=== PATIENT | female | born 1985 | race Caucasian/White ===

== ENCOUNTER 2017-03-08 21:59 | Emergency (ER) | payer OTHER ==
[~2017-03-08] VITALS: Ht 162.6 cm; Wt 98.3 kg
[~2017-03-08 21:59] MED LIST: ABILIFY2 MG PO; AFRIN,GENASAL D15 ML BOTH NARES; AUGMENTIN875 MG PO; CELEXA20 MG PO; CHANTIX1 MG PO; CILOXAN 0.1 APPLICAT RIGHT EYE; CLEOCIN300 MG PO; DESYREL100 MG PO; EFFEXOR XR150 MG PO; EFFEXOR50 MG PO; EFFEXOR75 MG PO; ENDOCET 5-3251 EACH; ERYTHROMYCIN O3.5 GM BOTH EYES; FLAGYL500 MG PO; FLONASE16 G1 BOTH NARES; HOMATROPINE; HYDROCODON-ACE1 EAC7 PO; IMITREX25 MG PO; INDOCIN25 MG PO; KEFLEX500 MG PO; KLONOPIN0.5 M1 PO; LORTAB 5-325 M1 EACH PO; MACROBID100 MG PO; MECLIZINE HCL25 MG PO; MEDROL DOSEPAK4 MG PO; MOTRIN800 MG PO; MUCUS RELIEF600 M1 PO; NAPROSYN500 MG PO; NICOTINE PATCH1 EAC2 TD; NOHOMEMEDS; NORCO 5/3251 TABLET PO; NORCO 7.5/321 TABLET PO; NORTRIPTYLINE H25 MG PO; ONDANSETRON ODT4 MG PO; PERCOCET 5/31 TABLET PO; PRED FORTE100 DROP/5 RIGHT EYE; PREDNISONE20 MG PO; PROMETHAZINE HC25 M1; TOPAMAX25 MG PO; TOPAMAX50 MG PO; TORADOL10 MG PO; TRAMADOL HCL50 MG PO; TRAZODONE HCL300 MG PO; ULTRAM50 MG PO; VENLAFAXINE HC150 M1 PO; VITAMIN D5000 UNIT PO; XANAX0.5 MG PO; ZOFRAN4 MG PO
[2017-03-09] MEDS ORDERED: VALIUM5 MG PO
[2017-03-09] MEDS ORDERED: NORCO 7.5/321 TABLET PO
[2017-03-09] MEDS ORDERED: MOTRIN800 MG PO
[2017-03-09 00:32] VITALS: BP 97/55
== END 2017-03-09 00:22 | disposition home or self-care (01) ==
LOC: EME 21:59
DX: S39.012A Strain of muscle, fascia and tendon of lower back, initial encounter (principal); M54.42 Lumbago with sciatica, left side; Z72.0 Tobacco use
CPT/HCPCS: 99281; 99283; J3010

== ENCOUNTER 2017-05-10 19:26 | Emergency (ER) | payer OTHER ==
[~2017-05-10] VITALS: Ht 162.6 cm; Wt 100.0 kg
[~2017-05-10 19:26] MED LIST changes: +VALIUM5 MG PO
[2017-05-10] MEDS ORDERED: VALIUM5 MG PO (22:36)
[2017-05-10] MEDS ORDERED: PERCOCET 5/31 TABLET PO (22:36)
[2017-05-10] MEDS ORDERED: MEDROL DOSEPAK4 MG PO (22:36)
[2017-05-10 22:55] VITALS: BP 120/85
== END 2017-05-10 22:55 | disposition home or self-care (01) ==
LOC: EXP 19:26 → EME 19:26 → EXP 22:55
DX: M54.5 Low back pain (principal); M62.830 Muscle spasm of back
CPT/HCPCS: 72100; 99281; 99284; J1885

== ENCOUNTER 2017-06-02 18:02 | Emergency (ER) | payer OTHER ==
[~2017-06-02] VITALS: Ht 162.6 cm; Wt 94.1 kg
[2017-06-02 20:32] LABS: HEMATOCRIT 36.6 % (36.0-46.0); MCH 29.8 PG (29.0-34.0); MCHC 34.2 G/DL (30.0-36.0); MCV 87.1 FL (83-99); MEAN PLAT.VOLUME 9.1 uM^3 (9.5-12.4); PLATELET COUNT 329 K/uL (156-360); RBC DIS.WIDTH-CV 14.1 % (11.8-14.6); RBC DIS.WIDTH-SD 45.2 % (39-53); WHITE BLOOD COUNT 15.4 K/uL (4.1-10.2)
[2017-06-02 20:40] LABS: CHLORIDE 102 mEq/L (99-109); POTASSIUM 3.1 mEq/L (3.7-5.4); SODIUM 137 mEq/L (136-147)
[2017-06-02 20:42] LABS: GLUCOSE 97 mg/dL (70-99)
[2017-06-02 20:43] LABS: ANION GAP 10 MEQ/L (2-14)
[2017-06-02 20:46] LABS: GFR ESTIMATE (CALCULATED) > 59 mL/min/; UREA NITROGEN (BUN) 8 mg/dL (9-23)
[2017-06-02 20:55] LABS: QUANTITATIVE HCG < 4.0 MIU/ML
[2017-06-02] MEDS ORDERED: PERCOCET 5/31 TABLET PO (22:13)
[2017-06-02] MEDS ORDERED: KEFLEX500 MG PO (22:13)
[2017-06-02 23:12] VITALS: BP 94/55
== END 2017-06-02 23:14 | disposition home or self-care (01) ==
LOC: EME 18:02
PROVIDERS: Physician Assistant
DX: H01.003 Unspecified blepharitis right eye, unspecified eyelid (principal); L03.211 Cellulitis of face; Z97.0 Presence of artificial eye
CPT/HCPCS: 70487; 80048; 83605; 84702; 85027; 87040; 87070; 87075; 87077; 87147; 87181; 87185; 87186; 87205; 99281; 99284; J0696; J1100; J1885; J2405; J3010; J7030; J7050

== ENCOUNTER 2017-09-15 19:02 | Emergency (ER) | payer OTHER ==
[~2017-09-15] VITALS: Ht 162.6 cm; Wt 94.8 kg
[~2017-09-15 19:02] MED LIST changes: +HYCODAN SYRUP480 ML PO; +TESSALON PERLE100 MG PO
[2017-09-15 21:17] LABS: HEMATOCRIT 37.7 % (36.0-46.0); MCH 28.8 PG (29.0-34.0); MCHC 33.4 G/DL (30.0-36.0); MCV 86.3 FL (83-99); MEAN PLAT.VOLUME 9.4 uM^3 (9.5-12.4); PLATELET COUNT 292 K/uL (156-360); RBC DIS.WIDTH-CV 13.9 % (11.8-14.6); RED BLOOD COUNT 4.37 M/uL (3.80-5.20); WHITE BLOOD COUNT 13.6 K/uL (4.1-10.2)
[2017-09-15 21:30] LABS: CHLORIDE 104 mEq/L (99-109); POTASSIUM 3.9 mEq/L (3.7-5.4); SODIUM 136 mEq/L (136-147)
[2017-09-15 21:32] LABS: GLUCOSE 114 mg/dL (70-99)
[2017-09-15 21:33] LABS: ANION GAP 9 MEQ/L (2-14)
[2017-09-15 21:36] LABS: GFR ESTIMATE (CALCULATED) > 59 mL/min/
[2017-09-15 21:37] LABS: UREA NITROGEN (BUN) 10 mg/dL (9-23)
[2017-09-15] MEDS ORDERED: NORCO 5/3251 TABLET PO (22:53)
[2017-09-15] MEDS ORDERED: AUGMENTIN875 MG PO (22:53)
[2017-09-15 23:24] VITALS: BP 111/85
== END 2017-09-15 23:27 | disposition home or self-care (01) ==
LOC: EME 19:02
PROVIDERS: Physician Assistant
DX: L03.211 Cellulitis of face (principal); Z97.0 Presence of artificial eye; Z87.440 Personal history of urinary (tract) infections; F17.200 Nicotine dependence, unspecified, uncomplicated
CPT/HCPCS: 70487; 80048; 83605; 85027; 87040; 99281; 99284; J0295; J1885; J7050

== ENCOUNTER 2017-09-22 15:08 | Emergency (ER) | payer OTHER ==
[~2017-09-22] VITALS: Ht 154.9 cm; Wt 95.0 kg
[2017-09-22 16:54] LABS: HEMATOCRIT 39.8 % (36.0-46.0); MCH 29.2 PG (29.0-34.0); MCHC 33.4 G/DL (30.0-36.0); MCV 87.3 FL (83-99); MEAN PLAT.VOLUME 9.2 uM^3 (9.5-12.4); PLATELET COUNT 354 K/uL (156-360); RBC DIS.WIDTH-CV 14.3 % (11.8-14.6); RBC DIS.WIDTH-SD 45.7 % (39-53); RED BLOOD COUNT 4.56 M/uL (3.80-5.20); WHITE BLOOD COUNT 13.6 K/uL (4.1-10.2)
[2017-09-22 17:03] LABS: CHLORIDE 106 mEq/L (99-109); POTASSIUM 3.8 mEq/L (3.7-5.4); SODIUM 139 mEq/L (136-147)
[2017-09-22 17:05] LABS: GLUCOSE 90 mg/dL (70-99)
[2017-09-22 17:06] LABS: ANION GAP 11 MEQ/L (2-14)
[2017-09-22 17:09] LABS: GFR ESTIMATE (CALCULATED) > 59 mL/min/
[2017-09-22 17:10] LABS: UREA NITROGEN (BUN) 9 mg/dL (9-23)
[2017-09-22 17:17] LABS: QUANTITATIVE HCG < 4.0 MIU/ML
[2017-09-22] MEDS ORDERED: FLONASE ALLERG9.9 ML BOTH NARES (17:44)
[2017-09-22] MEDS ORDERED: PERCOCET 5/31 TABLET PO (18:31)
[2017-09-22 18:37] VITALS: BP 119/76
== END 2017-09-22 19:11 | disposition home or self-care (01) ==
LOC: EME 15:08
PROVIDERS: Nurse Practitioner Family
DX: J32.9 Chronic sinusitis, unspecified (principal); F17.200 Nicotine dependence, unspecified, uncomplicated
CPT/HCPCS: 80048; 83605; 84702; 85027; 99281; 99284

== ENCOUNTER 2017-11-02 21:59 | Emergency (ER) | payer OTHER ==
[~2017-11-02] VITALS: Ht 162.6 cm; Wt 95.7 kg
[~2017-11-02 21:59] MED LIST changes: +FLONASE ALLERG9.9 ML BOTH NARES
[2017-11-03] MEDS ORDERED: ULTRAM50 MG PO (01:26)
[2017-11-03] MEDS ORDERED: AUGMENTIN875 MG PO (01:26)
[2017-11-03 01:33] VITALS: BP 122/80
== END 2017-11-03 01:33 | disposition home or self-care (01) ==
LOC: EME 21:59
DX: J32.9 Chronic sinusitis, unspecified (principal); F17.200 Nicotine dependence, unspecified, uncomplicated
CPT/HCPCS: 70486; 99281; 99284

== ENCOUNTER 2017-12-15 19:42 | Emergency (ER) | payer OTHER ==
[~2017-12-15] VITALS: Ht 162.6 cm; Wt 92.8 kg
[2017-12-15] MEDS ORDERED: LIDOCAINE20 MG/1 M5 PO (20:03)
[2017-12-15] MEDS ORDERED: AUGMENTIN875 MG PO (20:03)
[2017-12-15] MEDS ORDERED: INDOCIN50 MG PO (20:03)
[2017-12-15 20:27] VITALS: BP 134/112
== END 2017-12-15 20:27 | disposition home or self-care (01) ==
LOC: EME 19:42
DX: K02.9 Dental caries, unspecified (principal); F17.200 Nicotine dependence, unspecified, uncomplicated; Z88.8 Allergy status to other drugs, medicaments and biological substances
CPT/HCPCS: 99281; 99283

== ENCOUNTER 2018-02-10 21:32 | Emergency (ER) | payer OTHER ==
[~2018-02-10] VITALS: Ht 152.4 cm; Wt 92.6 kg
[~2018-02-10 21:32] MED LIST changes: +INDOCIN50 MG PO; +LIDOCAINE20 MG/1 M5 PO
[2018-02-11] MEDS ORDERED: MOBIC7.5 MG PO (00:14)
[2018-02-11] MEDS ORDERED: NEURONTIN100 MG PO (00:14)
[2018-02-11] MEDS ORDERED: FLEXERIL5 MG PO (00:14)
[2018-02-11 01:21] VITALS: BP 114/78
== END 2018-02-11 01:21 | disposition home or self-care (01) ==
LOC: EME 21:32
DX: S40.021A Contusion of right upper arm, initial encounter (principal); M54.12 Radiculopathy, cervical region; W17.89XA Other fall from one level to another, initial encounter; Y93.89 Activity, other specified; F17.200 Nicotine dependence, unspecified, uncomplicated
CPT/HCPCS: 73060; 99281; 99284

== ENCOUNTER 2018-03-11 20:33 | Emergency (ER) | payer OTHER ==
[~2018-03-11] VITALS: Ht 167.6 cm; Wt 91.7 kg
[~2018-03-11 20:33] MED LIST changes: +FLEXERIL5 MG PO; +MOBIC7.5 MG PO; +NEURONTIN100 MG PO
[2018-03-11] MEDS ORDERED: NORCO 7.5/321 TABLET PO (22:23)
[2018-03-11] MEDS ORDERED: VALIUM5 MG PO (22:23)
[2018-03-11] MEDS ORDERED: INDOCIN50 MG PO (22:23)
[2018-03-11] MEDS ORDERED: ULTRACET1 TABLET PO (22:25)
[2018-03-11 22:58] VITALS: BP 121/73
== END 2018-03-11 22:58 | disposition home or self-care (01) ==
LOC: EME 20:33
DX: S39.012A Strain of muscle, fascia and tendon of lower back, initial encounter (principal); M54.32 Sciatica, left side; M54.31 Sciatica, right side; G57.03 Lesion of sciatic nerve, bilateral lower limbs; X50.3XXA Overexertion from repetitive movements, initial encounter; Y93.H9 Activity, other involving exterior property and land maintenance, building and construction; Y92.833 Campsite as the place of occurrence of the external cause; F17.200 Nicotine dependence, unspecified, uncomplicated; Z98.51 Tubal ligation status
CPT/HCPCS: 99281; 99284

== ENCOUNTER 2018-03-22 15:31 | Emergency (ER) | payer OTHER ==
[~2018-03-22] VITALS: Ht 162.6 cm; Wt 90.9 kg
[~2018-03-22 15:31] MED LIST changes: +ULTRACET1 TABLET PO
[2018-03-22 16:52] LABS: CHLORIDE 108 mEq/L (99-109); POTASSIUM 3.8 mEq/L (3.7-5.4); SODIUM 139 mEq/L (136-147)
[2018-03-22 16:54] LABS: GLUCOSE 87 mg/dL (70-99)
[2018-03-22 16:58] LABS: CREATININE 0.8 mg/dL (0.6-1.3); GFR ESTIMATE (CALCULATED) > 59 mL/min/
[2018-03-22 16:59] LABS: UREA NITROGEN (BUN) 9 mg/dL (9-23)
[2018-03-22 17:06] LABS: HEMATOCRIT 37.8 % (36.0-46.0); HEMOGLOBIN 13.2 G/DL (11.9-15.5); MCH 30.2 PG (29.0-34.0); MCHC 34.9 G/DL (30.0-36.0); MCV 86.5 FL (83-99); PLATELET COUNT 319 K/uL (156-360); QUANTITATIVE HCG < 4.0 MIU/ML; RBC DIS.WIDTH-CV 14.8 % (11.8-14.6); RED BLOOD COUNT 4.37 M/uL (3.80-5.20); WHITE BLOOD COUNT 11.8 K/uL (4.1-10.2)
[2018-03-22] MEDS ORDERED: PEN-VEE K,VEET500 MG PO (18:44)
[2018-03-22] MEDS ORDERED: NAPROSYN500 MG PO (18:44)
[2018-03-22 19:57] VITALS: BP 119/74
== END 2018-03-22 19:58 | disposition home or self-care (01) ==
LOC: EME 15:31
PROVIDERS: Physician Assistant
DX: K04.7 Periapical abscess without sinus (principal); R51 Headache; F17.200 Nicotine dependence, unspecified, uncomplicated
CPT/HCPCS: 70481; 80048; 84702; 85027; 99281; 99284; J1200; J1885; J2765; J3010; J7030

== ENCOUNTER 2018-04-02 15:59 | Emergency (ER) | payer OTHER ==
[~2018-04-02] VITALS: Ht 162.6 cm; Wt 91.2 kg
[~2018-04-02 15:59] MED LIST changes: +PEN-VEE K,VEET500 MG PO
[2018-04-02] MEDS ORDERED: PERCOCET 5/31 TABLET PO (17:08)
[2018-04-02] MEDS ORDERED: VALIUM5 MG PO (17:08)
[2018-04-02] MEDS ORDERED: LIDODERM 5% P1 PATCH TD (17:08)
[2018-04-02 17:19] VITALS: BP 127/75
== END 2018-04-02 17:32 | disposition home or self-care (01) ==
LOC: EME 15:59
DX: S39.012A Strain of muscle, fascia and tendon of lower back, initial encounter (principal); X50.0XXA Overexertion from strenuous movement or load, initial encounter; Y99.0 Civilian activity done for income or pay; Z88.8 Allergy status to other drugs, medicaments and biological substances
CPT/HCPCS: 72131; 99281; 99284; J1885

== ENCOUNTER 2018-04-13 17:25 | Emergency (ER) | payer OTHER ==
[~2018-04-13] VITALS: Ht 154.9 cm; Wt 91.4 kg
[~2018-04-13 17:25] MED LIST changes: +LIDODERM 5% P1 PATCH TD
[2018-04-13] MEDS ORDERED: NAPROXEN500 MG PO (21:18)
[2018-04-13] MEDS ORDERED: LIDODERM 5% P1 PATCH TD (21:18)
[2018-04-13] MEDS ORDERED: NORCO 5/3251 TABLET PO (21:18)
[2018-04-13 21:36] VITALS: BP 121/88
== END 2018-04-13 21:39 | disposition home or self-care (01) ==
LOC: EME 17:25 → RME 17:25
DX: M54.5 Low back pain (principal); M79.605 Pain in left leg; F17.200 Nicotine dependence, unspecified, uncomplicated; Z88.8 Allergy status to other drugs, medicaments and biological substances
CPT/HCPCS: 99281; 99284; J1885

== ENCOUNTER 2018-04-28 21:59 | Emergency (ER) | payer OTHER ==
[~2018-04-28] VITALS: Ht 162.6 cm; Wt 92.8 kg
[~2018-04-28 21:59] MED LIST changes: +NAPROXEN500 MG PO
[2018-04-29] MEDS ORDERED: NORCO 5/3251 TABLET PO (00:44)
[2018-04-29 01:00] VITALS: BP 117/85
== END 2018-04-29 01:00 | disposition home or self-care (01) ==
LOC: EME 21:59
DX: G89.29 Other chronic pain (principal); M54.5 Low back pain; R20.0 Anesthesia of skin; R20.2 Paresthesia of skin; F17.200 Nicotine dependence, unspecified, uncomplicated
CPT/HCPCS: 99281; 99283

== ENCOUNTER 2018-05-17 16:23 | Emergency (ER) | payer OTHER ==
[~2018-05-17] VITALS: Ht 162.6 cm; Wt 91.7 kg
[2018-05-17 16:47] LABS: HEMATOCRIT 38.5 % (36.0-46.0); HEMOGLOBIN 13.2 G/DL (11.9-15.5); MCH 30.5 PG (29.0-34.0); MCHC 34.3 G/DL (30.0-36.0); MCV 88.9 FL (83-99); PLATELET COUNT 364 K/uL (156-360); RBC DIS.WIDTH-CV 15.4 % (11.8-14.6); RBC DIS.WIDTH-SD 50.3 % (39-53); RED BLOOD COUNT 4.33 M/uL (3.80-5.20); WHITE BLOOD COUNT 13.4 K/uL (4.1-10.2)
[2018-05-17 16:58] LABS: ALBUMIN 4.3 g/dL (3.2-4.8); CHLORIDE 106 mEq/L (99-109); POTASSIUM 3.5 mEq/L (3.7-5.4); SODIUM 140 mEq/L (136-147)
[2018-05-17 17:01] LABS: GLUCOSE 136 mg/dL (70-99); TOTAL PROTEIN 7.7 g/dL (6.4-8.3)
[2018-05-17 17:02] LABS: TOTAL BILIRUBIN 0.8 mg/dL (0.0-1.0)
[2018-05-17 17:04] LABS: ALKALINE PHOSPHATASE 79 IU/L (3-129); CREATININE 0.9 mg/dL (0.6-1.3); GFR ESTIMATE (CALCULATED) > 59 mL/min/
[2018-05-17 17:05] LABS: UREA NITROGEN (BUN) 11 mg/dL (9-23)
[2018-05-17 17:06] LABS: AST (GOT) 14 IU/L (2-34)
[2018-05-17 17:07] LABS: ALT (GPT) 14 IU/L (3-49)
[2018-05-17 17:13] LABS: QUANTITATIVE HCG < 4.0 MIU/ML
[2018-05-17 17:37] LABS: LIPASE 33 U/L (1.0-51.0)
[2018-05-17 17:57] LABS: APPEARANCE CLEAR ((CLEAR)); BILIRUBIN NEGATIVE; BLOOD MODERATE; COLOR YELLOW ((YELLOW)); GLUCOSE (STRIP) NEGATIVE; KETONES NEGATIVE; LEUKOCYTES NEGATIVE; NITRITE NEGATIVE; PROTEIN (STRIP) NEGATIVE; SPECIFIC GRAVITY 1.012 (1.000-1.030); UROBILINOGEN 0.2 MG/DL (0.2-1.0)
[2018-05-17 17:59] LABS: BACTERIA NONE SEEN /HPF; EPITHELIAL CELLS RARE /HPF; MUCUS NONE SEEN /LPF; UCUL ADDED? NO; WHITE BLOOD CELLS 0-5 /HPF (0-5)
[2018-05-17] MEDS ORDERED: ZOFRAN ODT4 MG PO (19:16)
[2018-05-17] MEDS ORDERED: CIPRO500 MG PO (19:16)
[2018-05-17] MEDS ORDERED: BENTYL20 MG PO (19:16)
[2018-05-17] MEDS ORDERED: FLAGYL500 MG PO (19:16)
[2018-05-17 19:29] VITALS: BP 96/54
== END 2018-05-17 19:30 | disposition home or self-care (01) ==
LOC: EME 16:23
DX: R10.31 Right lower quadrant pain (principal); R11.0 Nausea; R19.7 Diarrhea, unspecified; Z98.51 Tubal ligation status; F17.200 Nicotine dependence, unspecified, uncomplicated
CPT/HCPCS: 74177; 80053; 81003; 83690; 84702; 85027; 99281; 99283; J1885; J2405; J3010; J7030

== ENCOUNTER 2018-05-21 23:41 | Emergency (ER) | payer OTHER ==
[~2018-05-21] VITALS: Ht 162.6 cm; Wt 93.3 kg
[~2018-05-21 23:41] MED LIST changes: +BENTYL20 MG PO; +CIPRO500 MG PO; +ZOFRAN ODT4 MG PO
[2018-05-21 23:58] LABS: HEMATOCRIT 36.8 % (36.0-46.0); HEMOGLOBIN 12.5 G/DL (11.9-15.5); MCH 30.3 PG (29.0-34.0); MCV 89.3 FL (83-99); PLATELET COUNT 388 K/uL (156-360); RBC DIS.WIDTH-CV 15.4 % (11.8-14.6); RBC DIS.WIDTH-SD 50.7 % (39-53); RED BLOOD COUNT 4.12 M/uL (3.80-5.20); WHITE BLOOD COUNT 18.5 K/uL (4.1-10.2)
[2018-05-22 00:06] LABS: ALBUMIN 4.4 g/dL (3.2-4.8)
[2018-05-22 00:07] LABS: CHLORIDE 105 mEq/L (99-109); POTASSIUM 3.7 mEq/L (3.7-5.4); SODIUM 138 mEq/L (136-147)
[2018-05-22 00:09] LABS: GLUCOSE 92 mg/dL (70-99); TOTAL PROTEIN 7.6 g/dL (6.4-8.3)
[2018-05-22 00:12] LABS: ALKALINE PHOSPHATASE 81 IU/L (3-129)
[2018-05-22 00:14] LABS: AST (GOT) 13 IU/L (2-34); UREA NITROGEN (BUN) 14 mg/dL (9-23)
[2018-05-22 00:15] LABS: ALT (GPT) 12 IU/L (3-49)
[2018-05-22 00:21] LABS: QUANTITATIVE HCG < 4.0 MIU/ML
[2018-05-22 00:22] LABS: CREATININE 1.6 mg/dL (0.6-1.3); GFR ESTIMATE (CALCULATED) 39 mL/min/; TOTAL BILIRUBIN 0.2 mg/dL (0.0-1.0)
[2018-05-22 01:37] LABS: APPEARANCE SL.HAZY ((CLEAR)); BILIRUBIN NEGATIVE; BLOOD SMALL; COLOR YELLOW ((YELLOW)); GLUCOSE (STRIP) NEGATIVE; KETONES NEGATIVE; LEUKOCYTES SMALL; NITRITE NEGATIVE; PROTEIN (STRIP) NEGATIVE; SPECIFIC GRAVITY 1.019 (1.000-1.030); UROBILINOGEN 0.2 MG/DL (0.2-1.0)
[2018-05-22 01:46] LABS: BACTERIA 1+ /HPF; EPITHELIAL CELLS 2+ /HPF; MUCUS 1+ /LPF; UCUL ADDED? YES
[2018-05-22] MEDS ORDERED: PERCOCET 5/31 TABLET PO (02:58)
[2018-05-22 04:04] VITALS: BP 92/60
[2018-05-22] MEDS ORDERED: ZANTAC150 MG PO (23:51)
== END 2018-05-22 04:04 | disposition home or self-care (01) ==
LOC: EME 23:41
DX: R10.31 Right lower quadrant pain (principal); N17.9 Acute kidney failure, unspecified; E86.0 Dehydration; R11.2 Nausea with vomiting, unspecified; N88.8 Other specified noninflammatory disorders of cervix uteri; Z98.51 Tubal ligation status; F17.200 Nicotine dependence, unspecified, uncomplicated
CPT/HCPCS: 76856; 80053; 81003; 84702; 85027; 87086; 99281; 99285; J2270; J2405; J7030

== ENCOUNTER 2018-05-22 19:52 | Emergency (ER) | payer OTHER ==
[~2018-05-22] VITALS: Ht 162.6 cm; Wt 96.1 kg
[2018-05-22 20:49] LABS: BASOPHIL (%) 0.4 % (0-1); BASOPHIL COUNT 0.1 K/uL (0-0.1); EOSINOPHIL (%) 2.3 % (0-5); EOSINOPHIL COUNT 0.3 K/uL (0-0.3); HEMATOCRIT 33.9 % (36.0-46.0); HEMOGLOBIN 11.4 G/DL (11.9-15.5); IMMATURE GRANULOCYTE (%) 0.4 % (0.0-0.7); LYMPHOCYTE (%) 39.7 % (15-42); LYMPHOCYTE COUNT 5.4 K/uL (1.0-2.8); MCH 30.2 PG (29.0-34.0); MCHC 33.6 G/DL (30.0-36.0); MCV 89.9 FL (83-99); MONOCYTE (%) 5.1 % (3-12); MONOCYTE COUNT 0.7 K/uL (0-0.8); NEUTROPHIL (%) 52.1 % (45-76); NEUTROPHIL COUNT 7.1 K/uL (1.8-6.4); PLATELET COUNT 322 K/uL (156-360); RBC DIS.WIDTH-CV 15.3 % (11.8-14.6); RBC DIS.WIDTH-SD 50.7 % (39-53); RED BLOOD COUNT 3.77 M/uL (3.80-5.20); WHITE BLOOD COUNT 13.6 K/uL (4.1-10.2)
[2018-05-22 20:58] LABS: CHLORIDE 110 mEq/L (99-109); SODIUM 140 mEq/L (136-147)
[2018-05-22 21:00] LABS: GLUCOSE 110 mg/dL (70-99); TOTAL PROTEIN 6.9 g/dL (6.4-8.3)
[2018-05-22 21:02] LABS: TOTAL BILIRUBIN 0.2 mg/dL (0.0-1.0)
[2018-05-22 21:03] LABS: ALKALINE PHOSPHATASE 76 IU/L (3-129)
[2018-05-22 21:04] LABS: GFR ESTIMATE (CALCULATED) > 59 mL/min/
[2018-05-22 21:05] LABS: AST (GOT) 12 IU/L (2-34); DIRECT BILIRUBIN 0.1 mg/dL (0.0-0.3); UREA NITROGEN (BUN) 12 mg/dL (9-23)
[2018-05-22 21:07] LABS: ALT (GPT) 10 IU/L (3-49); CREATININE 0.8 mg/dL (0.6-1.3); LIPASE 43 U/L (1.0-51.0)
[2018-05-22 21:13] LABS: QUANTITATIVE HCG < 4.0 MIU/ML
[2018-05-22 21:13] LABS: TROP-I INTERPRETATION NEGATIVE; TROPONIN-I < 0.01 ng/mL (0.0-0.30)
[2018-05-22] MEDS ORDERED: ZANTAC150 MG PO (23:51)
[2018-05-22 23:54] LABS: APPEARANCE CLEAR ((CLEAR)); BILIRUBIN NEGATIVE; BLOOD MODERATE; COLOR YELLOW ((YELLOW)); GLUCOSE (STRIP) NEGATIVE; KETONES NEGATIVE; LEUKOCYTES NEGATIVE; NITRITE NEGATIVE; PROTEIN (STRIP) NEGATIVE; SPECIFIC GRAVITY 1.019 (1.000-1.030); UROBILINOGEN 0.2 MG/DL (0.2-1.0)
[2018-05-23] VITALS: BP 98/58
[2018-05-23 00:01] LABS: BACTERIA RARE /HPF; EPITHELIAL CELLS 1+ /HPF; MUCUS TRACE /LPF; RED BLOOD CELLS 0-5 /HPF (0-5); UCUL ADDED? NO; WHITE BLOOD CELLS 0-5 /HPF (0-5)
== END 2018-05-23 00:37 | disposition home or self-care (01) ==
LOC: EME 19:52
PROVIDERS: Emergency Medicine
DX: R10.11 Right upper quadrant pain (principal); R10.31 Right lower quadrant pain; Z98.51 Tubal ligation status; R11.2 Nausea with vomiting, unspecified; N83.12 Corpus luteum cyst of left ovary; F17.200 Nicotine dependence, unspecified, uncomplicated
CPT/HCPCS: 74177; 76705; 80048; 80076; 81003; 83605; 83690; 84484; 84702; 85025; 99281; 99285; J1200; J2765; J7030

== ENCOUNTER 2018-05-31 20:22 | Emergency (ER) | payer OTHER ==
[~2018-05-31] VITALS: Ht 162.6 cm; Wt 91.7 kg
[~2018-05-31 20:22] MED LIST changes: +ZANTAC150 MG PO
[2018-05-31] MEDS ORDERED: EYE ITCH RELIEF5 ML LEFT EYE (22:29)
[2018-05-31] MEDS ORDERED: BENADRYL50 MG PO (22:33)
[2018-05-31] MEDS ORDERED: PREDNISONE20 MG PO (22:33)
[2018-05-31 23:28] VITALS: BP 127/93
== END 2018-05-31 23:29 | disposition home or self-care (01) ==
LOC: EME 20:22
DX: H10.12 Acute atopic conjunctivitis, left eye (principal); L23.9 Allergic contact dermatitis, unspecified cause; F32.9 Major depressive disorder, single episode, unspecified; F17.200 Nicotine dependence, unspecified, uncomplicated; Z88.8 Allergy status to other drugs, medicaments and biological substances
CPT/HCPCS: 99281; 99283; J7512

== ENCOUNTER 2018-07-02 16:09 | Emergency (ER) | payer OTHER ==
[~2018-07-02] VITALS: Ht 162.6 cm; Wt 93.9 kg
[~2018-07-02 16:09] MED LIST changes: +BENADRYL50 MG PO; +EYE ITCH RELIEF5 ML LEFT EYE
[2018-07-02] MEDS ORDERED: SKELAXIN800 MG PO (17:37)
[2018-07-02] MEDS ORDERED: PREDNISONE50 MG PO (17:37)
[2018-07-02 17:57] VITALS: BP 129/84
== END 2018-07-02 17:58 | disposition home or self-care (01) ==
LOC: EME 16:09
DX: M54.5 Low back pain (principal); G89.29 Other chronic pain; Z88.8 Allergy status to other drugs, medicaments and biological substances
CPT/HCPCS: 99281; 99284; J2270